=== PATIENT | male | born 1965 | race Hispanic/Latino ===

== ENCOUNTER 2019-03-30 17:24 | Emergency (ER) | payer BC ==
[2019-03-30] MEDS ORDERED: LISINOPRIL 10 MG TAB ONE (17:55)
--- NOTE | 2019-03-30 19:29 | ER ---
Nurse's Notes [facility] Name: Jamey Castillo Age: 53 yrs Sex: Male : 1965 Arrival Date: 03/30/2019 Time: 17:26 Bed 19 Private MD: Diagnosis: Essential (primary) hypertension Presentation: 03/30 17:28 Presenting complaint: Patient states: He checked his blood pressure at home and it was aj1 185/101. Transition of care: patient was not received from another setting of care. Onset of symptoms was March 30, 2019. Risk Assessment: Do you want to hurt yourself or someone else? Patient reports no desire to harm self or others. Initial Sepsis Screen: Does the patient meet any 2 criteria? No. Patient's initial sepsis screen is negative. Does the patient have a suspected source of infection? No. Patient's initial sepsis screen is negative. Care prior to arrival: None. 17:28 Method Of Arrival: Ambulatory aj1 17:28 Acuity: ROMAINE 3 aj1 Triage Assessment: 17:30 General: Appears in no apparent distress. comfortable, Behavior is calm, cooperative, aj1 appropriate for age. Pain: Denies pain. Neuro: Level of Consciousness is awake, alert, obeys commands, Oriented to person, place, time, situation. Cardiovascular: Patient's skin is warm and dry. Respiratory: Airway is patent Respiratory effort is even, unlabored, Respiratory pattern is regular, symmetrical. Historical: - Allergies: 17:30 No Known Allergies; aj1 - Home Meds: 17:30 metformin 500 mg Oral tr24 1 tab twice daily [Active]; atorvastatin 40 mg oral tab 1 aj1 tab once daily [Active]; aspirin 81 mg Oral chew 1 tab once daily [Active]; hydrochlorothiazide 25 mg Oral tab 1 tab once daily [Active]; - PMHx: 17:30 Hypertension; Diabetes - NIDDM; Hyperlipidemia; aj1 - Immunization history:: Flu vaccine is not up to date. - Social history:: Smoking status: Patient/guardian denies using tobacco. - Ebola Screening: : Patient denies travel to an Ebola-affected area in the 21 days before illness onset. Screenin:49 Abuse screen: Denies threats or abuse. Denies injuries from another. Nutritional ch screening: No deficits noted. Tuberculosis screening: No symptoms or risk factors identified. Fall Risk None identified. Assessment: 18:58 Reassessment: Patient appears in no apparent distress at this time. Patient and/or ch family updated on plan of care and expected duration. Pain level reassessed. Patient is alert, oriented x 3, equal unlabored respirations, skin warm/dry/pink. General: Appears in no apparent distress. comfortable. Neuro: No deficits noted. Respiratory: Airway is patent Respiratory effort is even, unlabored, Breath sounds are clear. GI: No signs and/or symptoms were reported involving the gastrointestinal system. Derm: Skin is pink, warm \T\ dry. 19:20 Reassessment: Patient appears in no apparent distress at this time. Patient and/or cc3 family updated on plan of care and expected duration. Pain level reassessed. Patient is alert, oriented x 3, equal unlabored respirations, skin warm/dry/pink. Received this male patient from morning shift RN Nakia as a case of hypertension. No IV cannula in situ. Patient denies pain at this time. Patient states feeling better. Patient states symptoms have improved. 19:50 Reassessment: Patient appears in no apparent distress at this time. Patient and/or cc3 family updated on plan of care and expected duration. Pain level reassessed. Patient is alert, oriented x 3, equal unlabored respirations, skin warm/dry/pink. CLAUDIO Prajapati discharged the patient home with prescription given. No IV cannula in situ. Patient left ER vitally stable and ambulatory with his , no valuables left in the patient's room. Patient denies pain at this time. Patient states feeling better. Patient states symptoms have improved. Vital Signs: 17:30 BP 190 / 106; Pulse 91; Resp 18; Temp 97.4(TE); Pulse Ox 96% on R/A; Weight 120.66 kg aj1 (R); Height 5 ft. 6 in. (167.64 cm) (R); Pain 0/10; 17:49 BP 194 / 106; Pulse 88; Resp 14; Pulse Ox 99% on R/A; ch 18:58 BP 168 / 104; Pulse 86; Resp 14; Pulse Ox 96% on R/A; Pain 0/10; ch 19:30 BP 136 / 93; Pulse 81; Resp 16 S; Temp 98.8(O); Pulse Ox 95% on R/A; cc3 19:45 BP 128 / 89; Pulse 80; Resp 16 S; Pulse Ox 95% on R/A; cc3 17:30 Body Mass Index 42.93 (120.66 kg, 167.64 cm) aj ED Course: 17:26 Patient arrived in ED. mr 17:29 Triage completed. aj1 17:30 Arm band placed on Patient placed in an exam room. aj1 17:35 Victorina Villagran [facility]-C [facility]. snw 17:35 Jesus Manuel Tatum MD is Attending Physician. snw 17:38 Nakia Brown, RN is Primary Nurse. ch 17:49 No apparent distress. Resting quietly. ch 17:49 Patient has correct armband on for positive identification. Bed in low position. Call light in reach. Side rails up X 1. Pulse ox on. NIBP on. Warm blanket given. Verbal reassurance given. 17:49 No provider procedures requiring assistance completed. ch 18:58 Patient did not have IV access during this emergency room visit. ch 19:23 Report given to Mary Jane. ch Administered Medications: 17:49 Drug: Lisinopril 10 mg Route: PO; ch 18:59 Follow up: Response: No adverse reaction; Marked relief of symptoms; Blood pressure is ch lowered 19:37 Not Given (BP 136/82): cloNIDine 0.1 mg PO once snw Outcome: 19:29 Discharge ordered by . snw 19:50 Discharged to home ambulatory, with family. cc3 19:50 Condition: stable 19:50 Discharge instructions given to patient, family, Instructed on discharge instructions, follow up and referral plans. medication usage, Demonstrated understanding of instructions, follow-up care, medications, Prescriptions given X 1. 19:51 Patient left the ED. cc3 Signatures: Nakia Brown, RN RN Yesi Ramirez RN RN aj Victorina Villagran FNP-C FNP-Csnw Liliam Pineda Charlene cc3 Corrections: (The following items were deleted from the chart) 19:59 19:30 BP 136 / 93; Pulse 81bpm; Resp 16bpm; Spontaneous; Pulse Ox 95% RA; Temp 98.8F cc3 Oral; ch
--- NOTE | 2019-03-30 19:29 | EDPHYS ---
Physician Documentation [facility] Name: Jamey Castillo Age: 53 yrs Sex: Male : 1965 Arrival Date: 03/30/2019 Time: 17:26 Bed 19 Private MD: ED Physician Jesus Manuel Tatum HPI: 03/30 18:08 This 53 yrs old Male presents to ER via Ambulatory with complaints of High snw Blood Pressure. 18:08 The patient has elevated blood pressure and discovered this Just saw PCP, Dr. Downey, snw started Atorvastatin Friday. [place]isch[place] off at work today and noted BP higher than norm. Onset: The symptoms/episode began/occurred suddenly. Modifying factors:. Associated signs and symptoms: Pertinent positives: feeling slightly off balance. Severity of symptoms: At its worst the blood pressure was 185 mm Hg. hx of htn, takes hctz. The patient has been recently seen by a physician: the patient's primary care provider, Dr. Downey. Historical: - Allergies: 17:30 No Known Allergies; aj1 - Home Meds: 17:30 metformin 500 mg Oral tr24 1 tab twice daily [Active]; atorvastatin 40 mg oral tab 1 aj1 tab once daily [Active]; aspirin 81 mg Oral chew 1 tab once daily [Active]; hydrochlorothiazide 25 mg Oral tab 1 tab once daily [Active]; - PMHx: 17:30 Hypertension; Diabetes - NIDDM; Hyperlipidemia; aj1 - Immunization history:: Flu vaccine is not up to date. - Social history:: Smoking status: Patient/guardian denies using tobacco. - Ebola Screening: : Patient denies travel to an Ebola-affected area in the 21 days before illness onset. ROS: 18:07 Constitutional: Negative for fever, chills, and weight loss, Eyes: Negative for injury, snw pain, redness, and discharge, ENT: Negative for injury, pain, and discharge, Neck: Negative for injury, pain, and swelling, Cardiovascular: Negative for chest pain, palpitations, and edema, Respiratory: Negative for shortness of breath, cough, wheezing, and pleuritic chest pain, Abdomen/GI: Negative for abdominal pain, nausea, vomiting, diarrhea, and constipation, Back: Negative for injury and pain, : Negative for injury, bleeding, discharge, and swelling, MS/Extremity: Negative for injury and deformity, Skin: Negative for injury, rash, and discoloration. 18:07 Neuro: Positive for "feel a little off", took BP and it was 185 Systolic, sent home from work. Exam: 18:04 Constitutional: This is a well developed, well nourished patient who is awake, alert, snw and in no acute distress. Head/Face: Normocephalic, atraumatic. Eyes: Pupils equal round and reactive to light, extra-ocular motions intact. Lids and lashes normal. Conjunctiva and sclera are non-icteric and not injected. Cornea within normal limits. Periorbital areas with no swelling, redness, or edema. ENT: Nares patent. No nasal discharge, no septal abnormalities noted. Tympanic membranes are normal and external auditory canals are clear. Oropharynx with no redness, swelling, or masses, exudates, or evidence of obstruction, uvula midline. Mucous membranes moist. Neck: Trachea midline, no thyromegaly or masses palpated, and no cervical lymphadenopathy. Supple, full range of motion without nuchal rigidity, or vertebral point tenderness. No Meningismus. Chest/axilla: Normal chest wall appearance and motion. Nontender with no deformity. No lesions are appreciated. Cardiovascular: Regular rate and rhythm with a normal S1 and S2. No gallops, murmurs, or rubs. Normal PMI, no JVD. No pulse deficits. Respiratory: Lungs have equal breath sounds bilaterally, clear to auscultation and percussion. No rales, rhonchi or wheezes noted. No increased work of breathing, no retractions or nasal flaring. Abdomen/GI: Soft, non-tender, with normal bowel sounds. No distension or tympany. No guarding or rebound. No evidence of tenderness throughout. Back: No spinal tenderness. No costovertebral tenderness. Full range of motion. Skin: Warm, dry with normal turgor. Normal color with no rashes, no lesions, and no evidence of cellulitis. multiple skin tags to periocular areas bilaterally MS/ Extremity: Pulses equal, no cyanosis. Neurovascular intact. Full, normal range of motion. Neuro: Awake and alert, GCS 15, oriented to person, place, time, and situation. Cranial nerves II-XII grossly intact. Motor strength 5/5 in all extremities. Sensory grossly intact. Cerebellar exam normal. Normal gait. Vital Signs: 17:30 BP 190 / 106; Pulse 91; Resp 18; Temp 97.4(TE); Pulse Ox 96% on R/A; Weight 120.66 kg aj1 (R); Height 5 ft. 6 in. (167.64 cm) (R); Pain 0/10; 17:49 BP 194 / 106; Pulse 88; Resp 14; Pulse Ox 99% on R/A; ch 18:58 BP 168 / 104; Pulse 86; Resp 14; Pulse Ox 96% on R/A; Pain 0/10; ch 19:30 BP 136 / 93; Pulse 81; Resp 16 S; Temp 98.8(O); Pulse Ox 95% on R/A; cc3 19:45 BP 128 / 89; Pulse 80; Resp 16 S; Pulse Ox 95% on R/A; cc3 17:30 Body Mass Index 42.93 (120.66 kg, 167.64 cm) aj1 MDM: 17:38 Patient medically screened. snw 19:31 Data reviewed: vital signs, nurses notes. Data interpreted: Pulse oximetry: on room air snw is 96 %. Interpretation: acceptable. Counseling: I had a detailed discussion with the patient and/or guardian regarding: the historical points, exam findings, and any diagnostic results supporting the discharge/admit diagnosis, the need for outpatient follow up, to return to the emergency department if symptoms worsen or persist or if there are any questions or concerns that arise at home. Response to treatment: the patient's symptoms have mildly improved after treatment. Special discussion: I have referred the patient to see his PCP for further evaluation of high blood pressure. Based on the history and exam findings, there is no indication for further emergent testing or inpatient evaluation. I discussed with the patient/guardian the need to see the primary care provider for further evaluation of the symptoms. 03/30 18:18 Order name: [facility] [place]. Order: Repeat BP at 1830; Complete Time: 18:59 snw Administered Medications: 17:49 Drug: Lisinopril 10 mg Route: PO; ch 18:59 Follow up: Response: No adverse reaction; Marked relief of symptoms; Blood pressure is ch lowered 19:37 Not Given (BP 136/82): cloNIDine 0.1 mg PO once snw Disposition: 03/30/19 19:29 Discharged to Home. Impression: Essential (primary) hypertension. - Condition is Stable. - Discharge Instructions: Hypertension, How to Take Your Blood Pressure, [id number], DASH Eating Plan, Managing Your Hypertension, Form - Blood Pressure Record Sheet. - Prescriptions for Lisinopril 10 mg Oral Tablet - take 1 tablet by ORAL route once daily; 20 tablet. - Medication Reconciliation Form, Thank You Letter, Antibiotic Education, Prescription Opioid Use form. - Follow up: Private Physician; When: 2 - 3 days; Reason: Recheck today's complaints, Continuance of care, Re-evaluation by your physician. Follow up: Emergency Department; When: As needed; Reason: Worsening of condition. Addendum: 04/01/2019 00:16 Co-signature as Attending Physician, Jesus Manuel Tatum MD. r n Signatures: Nakia Brown, RN RN Yesi Ramirez RN RN aj1 Victorina Villagran, MANAGED CARE MANAGER-C MANAGED CARE MANAGER-Csnw Jesus Manuel Tatum MD MD rn Cordel, Charlene cc3 Corrections: (The following items were deleted from the chart) 03/30 19:51 19:29 03/30/2019 19:29 Discharged to Home. Impression: Essential (primary) cc3 hypertension. Condition is Stable. Forms are Medication Reconciliation Form, Thank You Letter, Antibiotic Education, Prescription Opioid Use. Follow up: Private Physician; When: 2 - 3 days; Reason: Recheck today's complaints, Continuance of care, Re-evaluation by your physician. Follow up: Emergency Department; When: As needed; Reason: Worsening of condition. snw
[2019-03-30 20:05] VITALS: BP 136/93; TEMP 98.8; O2SAT 95
== END 2019-03-30 19:51 | disposition home or self-care (01) ==
LOC: ER 17:24
DX: I10 Essential (primary) hypertension (principal); E11.9 Type 2 diabetes mellitus without complications; E78.5 Hyperlipidemia, unspecified; Z79.84 Long term (current) use of oral hypoglycemic drugs; Z79.82 Long term (current) use of aspirin
CPT/HCPCS: 99283

== ENCOUNTER 2019-04-04 05:51 | Emergency (ER) | payer BC ==
[2012-06-03 22:55] VITALS: BP 154/81
--- OUTSIDE RECORDS SUMMARY | 2019-04-04 05:54 | XMS REPORT ---
:1965 Author Organization [employer] Care Team Providers Name Role Phone Laurent Downey Provider Role Unavailable Allergies, Adverse Reactions, Alerts Substance Reaction Event Type N.K.D.A. Info Not Available Non Drug Allergy Problems Problem Type Condition Code Onset Dates Condition Status Assessment History of TIA (transient ischemic Z86.73 Active attack) Assessment Hypertension I10 Active Assessment Hyperlipidemia E78.5 Active Assessment Type 2 diabetes mellitus with E11.65 Active hyperglycemia Problem Hypertension I10 Active Problem History of TIA (transient ischemic Z86.73 Active attack) Problem Hyperlipidemia E78.5 Active Assessment Tobacco abuse counseling Z71.6 Active Problem Tobacco abuse counseling Z71.6 Active Problem Type 2 diabetes mellitus with E11.65 Active hyperglycemia Medications Medication Code Code Instructions Start End Status Dosage System Date Date Lipitor [facility] 90017535089 40 MG orally Active TAKE 1 before bed TABLET BY MOUTH ONCE A DAY Hydrochlorothiazide [facility] 22877500626 25 MG orally Active TAKE 1 once a day TABLET EVERY DAY Metformin HCl [facility] 33697040067 500 MG orally Active TAKE 1 bid TABLET BY MOUTH TWICE A DAY Aspirin [facility] 47377252772 81 MG Orally Active 1 tablet Once a day Lisinopril [facility] 27763282002 10 MG Orally Active 1 tablet Once a day Results No Known Results Summary Purpose [employer] Submission
--- OUTSIDE RECORDS SUMMARY | 2019-04-04 05:54 | XMS REPORT ---
:1965 Author Organization [employer] Care Team Providers Name Role Phone Laurent Downey Provider Role Unavailable Allergies No Known Allergies Problems Problem Type Condition Code Onset Dates Condition Status Problem Hyperlipidemia E78.5 Active Problem Hypertension I10 Active Problem Age-related nuclear cataract of both H25.13 Active eyes Problem Type 2 diabetes mellitus with E11.65 Active hyperglycemia Problem History of TIA (transient ischemic Z86.73 Active attack) Problem Tobacco abuse counseling Z71.6 Active Medications No Known Medications Results No Known Results Summary Purpose [employer] Submission
--- OUTSIDE RECORDS SUMMARY | 2019-04-04 05:54 | XMS REPORT ---
:1965 Author Organization [employer] Care Team Providers Name Role Phone Laurent Downey Provider Role Unavailable Allergies No Known Allergies Problems Problem Type Condition Code Onset Dates Condition Status Assessment Type 2 diabetes mellitus with E11.65 Active hyperglycemia Assessment Hypertension I10 Active Problem Hyperlipidemia E78.5 Active Problem Hypertension I10 Active Problem Age-related nuclear cataract of both H25.13 Active eyes Problem Type 2 diabetes mellitus with E11.65 Active hyperglycemia Problem History of TIA (transient ischemic Z86.73 Active attack) Problem Tobacco abuse counseling Z71.6 Active Medications Medication Code System Code Instructions Start Date End Date Status Dosage Farxiga [facility] 88288208078 10mg By Mouth March 26, Active 1 Daily 2018 Lisinopril [facility] 72447151913 10 MG Orally Once Active 1 tablet a day Results No Known Results Summary Purpose [employer]Works Submission
--- OUTSIDE RECORDS SUMMARY | 2019-04-04 05:54 | XMS REPORT ---
[...] I10 Active Assessment Hyperlipidemia E78.5 Active Assessment Medical non-compliance Z91.19 Active Assessment Age-related nuclear cataract of both H25.13 Active eyes Assessment Type 2 diabetes mellitus with E11.65 Active hyperglycemia Problem Hyperlipidemia E78.5 Active Problem Hypertension I10 Active Problem Age-related nuclear cataract of both H25.13 Active eyes Problem Type 2 diabetes mellitus with E11.65 Active hyperglycemia Problem History of TIA (transient ischemic Z86.73 Active attack) Problem Tobacco abuse counseling Z71.6 Active Medications Medication Code Code Instructions Start End Status Dosage System Date Date Aspirin [facility] 94729564966 81 MG Orally Active 1 tablet Once a day Metformin HCl [facility] 61751033882 500 MG orally Active take 1 bid tablet by mouth twice a day Lisinopril ND 23135672396 10 MG Orally Active 1 tablet Once a day Hydrochlorothiazide [facility] 90628220655 25 MG Orally Active take 1 Once a day tablet every day Farxiga ND 30927375748 10mg By Mouth March 26, 1 Daily 2019 Lipitor [facility] 54075412978 40 MG orally Active take 1 before bed tablet by mouth once a day Results No Known Results Summary Purpose eClinicalWorks Submission
[2019-04-04 06:39] LABS: Basophils % 0.9 % (0-1.3); Eosinophils % 1.6 % (0-4.4); Hematocrit 47.3 % (39.6-49.0); Lymphocytes % 25.5 % (15.3-44.8); MPV 10.9 fL (7.6-11.3); Monocytes % 11.8 % (3.3-12.3); RBC Red Blood Cell Count 5.41 M/uL (4.33-5.43)
[2019-04-04 06:52] LABS: Albumin 3.9 g/dL (3.4-5.0); Bilirubin Direct 0.3 mg/dL (0-0.2); Protein, Total 8.2 g/dL (6.4-8.2)
[2019-04-04 07:05] LABS: Urine Blood NEGATIVE (NEG); Urine Glucose TRACE (NEG); Urine Protein TRACE (NEG); Urine Specific Gravity 1.015 (1.005-1.030)
[2019-04-04 07:08] LABS: Potassium 2.9 mmol/L (3.5-5.1)
[2019-04-04] MEDS ORDERED: POTASSIUM CL SA 10 MEQ TAB PO ONE ×2 (07:54→09:07)
[2019-04-04] MEDS ORDERED: NA CHLORIDE 0.9% 1,000 ML ONE (07:54)
--- NOTE | 2019-04-04 08:37 | ER ---
Nurse's Notes [facility] Name: Jamey Castillo Age: 53 yrs Sex: Male : 1965 Arrival Date: 04/04/2019 Time: 05:56 Bed 15 Private MD: Laurent Downey Diagnosis: Volume depletion;Hypokalemia Presentation: 04/04 06:10 Presenting complaint: Patient states: Pt reports he was here Friday for HTN, pt ea reports loss of appetite, urinary retention, light headed, constipation reports a small BM today. Transition of care: patient was not received from another setting of care. Onset of symptoms was April 04, 2019. Risk Assessment: Do you want to hurt yourself or someone else? Patient reports no desire to harm self or others. Initial Sepsis Screen: Does the patient meet any 2 criteria? No. Patient's initial sepsis screen is negative. Does the patient have a suspected source of infection? No. Patient's initial sepsis screen is negative. Care prior to arrival: None. 06:10 Method Of Arrival: Ambulatory ea 06:10 Acuity: ROMAINE 3 ea Historical: - Allergies: 06:14 No Known Allergies; ea - Home Meds: 06:14 aspirin 81 mg Oral chew 1 tab once daily [Active]; atorvastatin 40 mg Oral tab 1 tab ea once daily [Active]; hydrochlorothiazide 25 mg Oral tab 1 tab once daily [Active]; metformin 500 mg Oral tr24 1 tab twice daily [Active]; - PMHx: 06:14 Hypertension; Hyperlipidemia; Diabetes - NIDDM; ea - PSHx: 06:14 Appendectomy; ea - Immunization history:: Adult Immunizations up to date. - Social history:: Smoking status: Patient/guardian denies using tobacco. - Ebola Screening: : No symptoms or risks identified at this time. Screenin:12 Abuse screen: Denies threats or abuse. Nutritional screening: No deficits noted. ea Tuberculosis screening: No symptoms or risk factors identified. Fall Risk None identified. Assessment: 06:35 General: Appears in no apparent distress. Behavior is calm, cooperative, appropriate ea for age. Pain: Denies pain. Neuro: Level of Consciousness is awake, alert, obeys commands, Oriented to person, place, time, situation. Cardiovascular: Patient's skin is warm and dry. Respiratory: Airway is patent Respiratory effort is even, unlabored, Respiratory pattern is regular, symmetrical. GI: Bowel sounds present X 4 quads. Abd is soft and non tender X 4 quads. Parent/caregiver reports the patient having nausea. Derm: Skin is pink, warm \T\ dry. 07:00 General: Appears in no apparent distress. comfortable, Behavior is calm, cooperative. rb1 Pain: Denies pain. Neuro: Level of Consciousness is awake, alert, obeys commands, Oriented to person, place, time, situation. Cardiovascular: Capillary refill < 3 seconds is brisk in bilateral fingers. Respiratory: Airway is patent Respiratory effort is even, unlabored, Respiratory pattern is regular, symmetrical. GI: Abd is soft and non tender X 4 quads. Derm: Skin is pink, warm \T\ dry. 08:00 Reassessment: Patient appears in no apparent distress at this time. No changes from rb1 previously documented assessment. at bedside. 08:59 Reassessment: Patient appears in no apparent distress at this time. Patient and/or rb1 family updated on plan of care and expected duration. Pain level reassessed. Patient is alert, oriented x 3, equal unlabored respirations, skin warm/dry/pink. Vital Signs: 06:14 BP 130 / 87; Pulse 102; Resp 18; Temp 98.6; Pulse Ox 97% ; Weight 115.21 kg; Height 5 ea ft. 8 in. (172.72 cm); Pain 0/10; 06:17 BP 137 / 79 LA Supine; Pulse 90; ea 06:19 BP 141 / 78 LA Sitting; Pulse 94; ea 06:20 BP 114 / 85 LA Standing; Pulse 104; ea 07:20 BP 125 / 83; Pulse 95; Resp 18; Temp 98.6(O); Pulse Ox 99% ; Pain 0/10; rb1 08:19 BP 125 / 68; Pulse 93; Resp 19; Temp 98.5(O); Pulse Ox 99% on R/A; Pain 0/10; rb1 06:14 Body Mass Index 38.62 (115.21 kg, 172.72 cm) ea ED Course: 05:56 Patient arrived in ED. do 05:57 Laurent Downey MD is Private Physician. do 05:59 Tatiana Vega FNP-C is [facility]. kb 05:59 Wilian Urrutia MD is Attending Physician. kb 06:12 Triage completed. ea 06:12 Arm band placed on right wrist. Patient placed in an exam room, on a stretcher, on ea pulse oximetry. 06:12 Patient has correct armband on for positive identification. Bed in low position. Call ea light in reach. Side rails up X2. 07:37 Stacie Bullard, RN is Primary Nurse. rb1 09:01 No provider procedures requiring assistance completed. IV discontinued, intact, rb1 bleeding controlled, No redness/swelling at site. Pressure dressing applied. Administered Medications: 07:40 Drug: NS 0.9% 1000 ml Route: IV; Rate: 1000 ml; Site: right antecubital; rb1 08:38 Follow up: IV Status: Completed infusion rb1 07:40 Drug: Potassium Chloride 40 mEq Route: PO; rb1 08:10 Follow up: Response: No adverse reaction rb1 08:53 Drug: Potassium Chloride 20 mEq Route: PO; rb1 08:58 Follow up: Response: Medication administered at discharge. rb1 Outcome: 08:36 Discharge ordered by . kb 09:01 Discharged to home ambulatory, with family. rb1 09:01 Condition: stable 09:01 Discharge instructions given to patient, Instructed on discharge instructions, follow up and referral plans. Demonstrated understanding of instructions, follow-up care, Prescriptions given X none 09:02 Patient left the ED. rb1 Signatures: Tatiana Vega, LEGAL ASSOCIATE-C LEGAL ASSOCIATE-Ckb Stacie Bullard, RN RN rb1 Nancy Mitchell Elena, RN RN ea
--- NOTE | 2019-04-04 08:37 | EDPHYS ---
Physician Documentation [facility] Name: Jamey Castillo Age: 53 yrs Sex: Male : 1965 Arrival Date: 04/04/2019 Time: 05:56 Bed 15 Private MD: Laurent Downey ED Physician Wilian Urrutia HPI: 04/04 06:27 This 53 yrs old Male presents to ER via Ambulatory with complaints of kb Decreased Appetite, Urinary Retention, Constipation. 06:30 The patient presents to the emergency department with constipation, decreased appetite, kb decreased urine output. Onset: The symptoms/episode began/occurred 1 week(s) ago. Possible causes: unknown. The symptoms are aggravated by nothing. The symptoms are alleviated by nothing. Associated signs and symptoms: Pertinent positives: constipation, decreased appetite and urine output. . Severity of symptoms: At their worst the symptoms were moderate in the emergency department the symptoms are unchanged. The patient has not experienced similar symptoms in the past. The patient has been recently seen at the [facility] Emergency Department, this week. Pt reports he started taking all of his routine medications again, "like I'm supposed to," a week ago. Comes in today for decreased urination, constipation, decreased appetite and lightheadedness. Was seen here on Friday for high blood pressure. Last normal BM was 2 days ago, small one this morning. . Historical: - Allergies: 06:14 No Known Allergies; ea - Home Meds: 06:14 aspirin 81 mg Oral chew 1 tab once daily [Active]; atorvastatin 40 mg Oral tab 1 tab ea once daily [Active]; hydrochlorothiazide 25 mg Oral tab 1 tab once daily [Active]; metformin 500 mg Oral tr24 1 tab twice daily [Active]; - PMHx: 06:14 Hypertension; Hyperlipidemia; Diabetes - NIDDM; ea - PSHx: 06:14 Appendectomy; ea - Immunization history:: Adult Immunizations up to date. - Social history:: Smoking status: Patient/guardian denies using tobacco. - Ebola Screening: : No symptoms or risks identified at this time. ROS: 06:29 ENT: Negative for injury, pain, and discharge, Neck: Negative for injury, pain, and kb swelling, Cardiovascular: Negative for chest pain, palpitations, and edema, Respiratory: Negative for shortness of breath, cough, wheezing, and pleuritic chest pain, Back: Negative for injury and pain, : Negative for injury, bleeding, discharge, and swelling, MS/Extremity: Negative for injury and deformity, Skin: Negative for injury, rash, and discoloration. 06:29 Constitutional: Positive for malaise, poor PO intake, Negative for body aches, chills, fatigue, fever, weight loss. 06:29 Abdomen/GI: Positive for constipation, anorexia, Negative for nausea, vomiting, and diarrhea. 06:29 Neuro: Positive for lightheadedness. Exam: 06:30 Constitutional: This is a well developed, well nourished patient who is awake, alert, kb and in no acute distress. Head/Face: Normocephalic, atraumatic. ENT: Nares patent. No nasal discharge, no septal abnormalities noted. Tympanic membranes are normal and external auditory canals are clear. Oropharynx with no redness, swelling, or masses, exudates, or evidence of obstruction, uvula midline. Mucous membranes moist. Neck: Trachea midline, no thyromegaly or masses palpated, and no cervical lymphadenopathy. Supple, full range of motion without nuchal rigidity, or vertebral point tenderness. No Meningismus. Chest/axilla: Normal chest wall appearance and motion. Nontender with no deformity. No lesions are appreciated. Cardiovascular: Regular rate and rhythm with a normal S1 and S2. No gallops, murmurs, or rubs. Normal PMI, no JVD. No pulse deficits. Respiratory: Lungs have equal breath sounds bilaterally, clear to auscultation and percussion. No rales, rhonchi or wheezes noted. No increased work of breathing, no retractions or nasal flaring. Abdomen/GI: Soft, non-tender, with normal bowel sounds. No distension or tympany. No guarding or rebound. No evidence of tenderness throughout. Back: No spinal tenderness. No costovertebral tenderness. Full range of motion. Skin: Warm, dry with normal turgor. Normal color with no rashes, no lesions, and no evidence of cellulitis. MS/ Extremity: Pulses equal, no cyanosis. Neurovascular intact. Full, normal range of motion. Neuro: Awake and alert, GCS 15, oriented to person, place, time, and situation. Cranial nerves II-XII grossly intact. Motor strength 5/5 in all extremities. Sensory grossly intact. Cerebellar exam normal. Normal gait. Vital Signs: 06:14 BP 130 / 87; Pulse 102; Resp 18; Temp 98.6; Pulse Ox 97% ; Weight 115.21 kg; Height 5 ea ft. 8 in. (172.72 cm); Pain 0/10; 06:17 BP 137 / 79 LA Supine; Pulse 90; ea 06:19 BP 141 / 78 LA Sitting; Pulse 94; ea 06:20 BP 114 / 85 LA Standing; Pulse 104; ea 07:20 BP 125 / 83; Pulse 95; Resp 18; Temp 98.6(O); Pulse Ox 99% ; Pain 0/10; rb1 08:19 BP 125 / 68; Pulse 93; Resp 19; Temp 98.5(O); Pulse Ox 99% on R/A; Pain 0/10; rb1 06:14 Body Mass Index 38.62 (115.21 kg, 172.72 cm) ea MDM: 05:59 Patient medically screened. kb 06:29 Data reviewed: vital signs, nurses notes. Data interpreted: Pulse oximetry: on room air kb is 97 %. Interpretation: normal. 08:34 Counseling: I had a detailed discussion with the patient and/or guardian regarding: the kb historical points, exam findings, and any diagnostic results supporting the discharge/admit diagnosis, lab results, the need for outpatient follow up, a family practitioner, to return to the emergency department if symptoms worsen or persist or if there are any questions or concerns that arise at home. 08:37 ED course: Pt educated on HCTZ and need for increase of fluids to prevent dehydration. .kb 04/04 06:06 Order name: Basic Metabolic Panel; Complete Time: 07:09 kb 04/04 06:06 Order name: CBC with Diff; Complete Time: 06:56 kb 04/04 06:06 Order name: Hepatic Function; Complete Time: 07:09 kb 04/04 06:06 Order name: Lipase; Complete Time: 07:09 kb 04/04 06:55 Order name: Urine Dipstick--Ancillary (enter results); Complete Time: 07:08 eb 04/04 06:06 Order name: IV Saline Lock; Complete Time: 06:32 kb 04/04 06:06 Order name: Labs collected and sent; Complete Time: 06:32 kb 04/04 06:06 Order name: Urine Dipstick-Ancillary (obtain specimen); Complete Time: 06:54 kb 04/04 06:06 Order name: Orthostatics; Complete Time: 06:32 kb Administered Medications: 07:40 Drug: NS 0.9% 1000 ml Route: IV; Rate: 1000 ml; Site: right antecubital; rb1 08:38 Follow up: IV Status: Completed infusion rb1 07:40 Drug: Potassium Chloride 40 mEq Route: PO; rb1 08:10 Follow up: Response: No adverse reaction rb1 08:53 Drug: Potassium Chloride 20 mEq Route: PO; rb1 08:58 Follow up: Response: Medication administered at discharge. rb1 Disposition: 19:38 Co-signature as Attending Physician, Wilian Urrutia MD. Disposition: 04/04/19 08:36 Discharged to Home. Impression: Volume depletion, Hypokalemia. - Condition is Stable. - Discharge Instructions: Potassium Content of Foods, Dehydration, Adult, [id number]. - Medication Reconciliation Form, Thank You Letter, Antibiotic Education, Prescription Opioid Use form. - Follow up: Emergency Department; When: As needed; Reason: Worsening of condition. Follow up: Private Physician; When: 2 - 3 days; Reason: Recheck today's complaints, Continuance of care, Re-evaluation by your physician. Signatures: Dispatcher [employer] EDTatiana Garcia, CARLOS-C TRANSVERSE ABDOMINAL MUSCLE NURSE-Stacie Mayfield, RN RN Amanda Chamorro RN RN ea Starr, Gregory, MD MD gs Corrections: (The following items were deleted from the chart) 09:02 08:36 04/04/2019 08:36 Discharged to Home. Impression: Volume depletion; Hypokalemia. rb1 Condition is Stable. Forms are Medication Reconciliation Form, Thank You Letter, Antibiotic Education, Prescription Opioid Use. Follow up: Emergency Department; When: As needed; Reason: Worsening of condition. Follow up: Private Physician; When: 2 - 3 days; Reason: Recheck today's complaints, Continuance of care, Re-evaluation by your physician. kb
== END 2019-04-04 09:02 | disposition home or self-care (01) ==
LOC: ER 05:51
DX: E86.9 Volume depletion, unspecified (principal); E87.6 Hypokalemia; K59.00 Constipation, unspecified; I10 Essential (primary) hypertension; E78.5 Hyperlipidemia, unspecified; E11.9 Type 2 diabetes mellitus without complications; Z79.82 Long term (current) use of aspirin; Z79.84 Long term (current) use of oral hypoglycemic drugs
CPT/HCPCS: 36415; 80048; 80076; 81003; 83690; 85025; 96360; 99283; J7030